=== PATIENT | male | born 1955 | race African-American/Black ===

== ENCOUNTER 2017-09-14 20:29 | Emergency (ER) | payer OTHER ==
[~2017-09-14] VITALS: Ht 175.3 cm; Wt 81.5 kg
[~2017-09-14 20:29] MED LIST: 1-ME1LIQ PO; BISA5TAB5 PO; CYCL1PAK PO; DICL75 PO; TRAM50 PO; ULTR50TA PO
[2017-09-14 20:31] VITALS: BP 176/96; PULSE 89; RESP 18; TEMP 101.9; O2SAT 96
[2017-09-14] MEDS ORDERED: SODIUM CHLOR 0.9% 1000 ML INJ 1,000 ML IV SCH (20:48)
[2017-09-14 20:55] VITALS: BP 161/88; PULSE 93; RESP 16; TEMP 101.9; O2SAT 99
[2017-09-14] MEDS ORDERED: ONDANSETRON HCL 4 MG/2 ML VIAL IVP ONE (21:00)
[2017-09-14] MEDS ORDERED: PANTOPRAZOLE SODIUM 40 MG VIAL IVP ONE (21:00)
[2017-09-14] MEDS ORDERED: SODIUM CHLORIDE 0.9% FLUSH 10 ML FLUSH IV FLUSH PRN (21:00)
--- NOTE | 2017-09-14 21:39 | PD ---
HPI Chief Complaint: GI Complaint Time Seen by Provider: 20:40 Travel History International Travel<30 days: No Contact w/Intl Traveler<30days: No Traveled to known affect area: No History of Present Illness HPI 62-year-old Afro-[place] male presents to emergency department with 2 week history of increasing weakness and shortness of breath with exertion. Patient has history of nausea and occasional vomitus as well as epigastric discomfort. Patient is noted darkening stools in the past several days consistent with possible GI bleed. Patient has history of GI bleed in the past. Patient is currently on omeprazole, and Carafate, metronidazole, and tetracycline as well as bismuth salicylate for recent H. pylori diagnosis after endoscopy on the . Patient is questioning whether he is anemic and needs blood work, and/or transfusion. Epigastric pain is worsening. He is nauseous currently. Patient denies fever, chills, chest pain or other symptoms. PFSH Past Medical History Glaucoma: Yes Hypertension: Yes Ulcer: Yes Tetanus Vaccination: < 5 Years Influenza Vaccination: No Past Surgical History Other Surgery: Yes (DUODENAL ULCERS REPAIRED, AND CYST REMOVED FROM POST. HEAD) Social History Alcohol Use: Yes ("2 TIMES A YEAR") Tobacco Use: Yes (CIGAR 1/WEEK) Substance Use: No Allergies-Medications (Allergen,Severity, Reaction): Coded Allergies: tomato (Unverified Allergy, Severe, 05/18/17) GREEN TOMATO Reported Meds & Prescriptions Reported Meds & Active Scripts Active Reported Amlodipine (Amlodipine Besylate) 10 Mg Tab 10 Mg PO DAILY Tetracycline (Tetracycline HCl) 250 Mg Cap 500 Mg PO QID Omeprazole 40 Mg Cap 40 Mg PO DAILY Metronidazole 500 Mg Tab 500 Mg PO TID Bismuth Subsalicylate 262 Mg Chew 524 Mg CHEW Q6HR PRN Do not exceed 8 doses in 24 hours. Review of Systems Except as stated in HPI: all other systems reviewed are Neg General / Constitutional: No: Fever, Chills Eyes: No: Visual changes HENT: No: Headaches Cardiovascular: Positive: Dyspnea on exertion, No: Chest Pain or Discomfort, Palpitations, Tachycardia, Diaphoresis, Syncope, Edema Respiratory: No: Shortness of Breath Gastrointestinal: Positive: Nausea, Vomiting, Abdominal Pain, Hematochezia, Dysphagia (history of reflux.), Loss of Appetite, No: Diarrhea, Hematemesis, Constipation (black stools noted), Changes in Bowel Habits, Indigestion Genitourinary: No: Dysuria Musculoskeletal: No: Pain Skin: No Rash Neurologic: Positive: Weakness (generalized) Psychiatric: No: Depression Endocrine: No: Polydipsia Hematologic/Lymphatic: No: Easy Bruising Physical Exam Narrative GENERAL: Patient appears in mild distress SKIN: Normal color. Normal turgor. HEAD: Atraumatic. Normocephalic. EYES: Pupils equal and round. No scleral icterus. Decreased conjunctival pallor or no drainage. ENT: No nasal bleeding or discharge. Mucous membranes pink and moist. Pharynx is clear. Airway is patent. NECK: Trachea midline. Supple nontender. CARDIOVASCULAR: Regular rate and rhythm. No murmurs gallops or rubs. RESPIRATORY: No accessory muscle use. Clear to auscultation. Breath sounds equal bilaterally. GASTROINTESTINAL: Abdomen soft, mild epigastric tenderness, nondistended. No point tenderness or rebound. No CVA tenderness. Hepatic and splenic margins not palpable. MUSCULOSKELETAL: Extremities without clubbing, cyanosis, or edema. No obvious deformities. NEUROLOGICAL: Awake and alert. No obvious cranial nerve deficits. Motor grossly within normal limits. Five out of 5 muscle strength in the arms and legs. Normal speech. PSYCHIATRIC: Appropriate mood and affect; insight and judgment normal. Data Data Last Documented VS Vital Signs Date Time Temp Pulse Resp B/P (MAP) Pulse Ox O2 Delivery O2 Flow Rate FiO2 09/14/17 22:58 100.0 95 17 137/71 (93) 98 Room Air Orders Orders Complete Blood Count With Diff (09/14/17 20:48) Comprehensive Metabolic Panel (09/14/17 20:48) Prothrombin Time / Inr (Pt) (09/14/17 20:48) Act Partial Throm Time (Ptt) (09/14/17 20:48) Iv Access Insert/Monitor (09/14/17 20:48) Ecg Monitoring (09/14/17 20:48) Oximetry (09/14/17 20:48) Ondansetron Inj (Zofran Inj) (09/14/17 21:00) Pantoprazole Inj (Protonix Inj) (09/14/17 21:00) Sodium Chlor 0.9% 1000 Ml Inj (Ns 1000 M (09/14/17 20:48) Sodium Chloride 0.9% Flush (Ns Flush) (09/14/17 21:00) Electrocardiogram (09/14/17 20:48) Type And Screen (09/14/17 20:48) Urinalysis - C+S If Indicated (09/14/17 22:57) Acetaminophen (Tylenol) (09/14/17 23:00) Labs Laboratory Tests Test 09/14/17 21:05 White Blood Count 5.6 TH/MM3 Red Blood Count 4.51 MIL/MM3 Hemoglobin 13.2 GM/DL Hematocrit 39.0 % Mean Corpuscular Volume 86.4 FL Mean Corpuscular Hemoglobin 29.2 PG Mean Corpuscular Hemoglobin Concent 33.8 % Red Cell Distribution Width 14.6 % Platelet Count 197 TH/MM3 Mean Platelet Volume 7.3 FL Neutrophils (%) (Auto) 74.6 % Lymphocytes (%) (Auto) 10.4 % Monocytes (%) (Auto) 14.1 % Eosinophils (%) (Auto) 0.3 % Basophils (%) (Auto) 0.6 % Neutrophils # (Auto) 4.2 TH/MM3 Lymphocytes # (Auto) 0.6 TH/MM3 Monocytes # (Auto) 0.8 TH/MM3 Eosinophils # (Auto) 0.0 TH/MM3 Basophils # (Auto) 0.0 TH/MM3 CBC Comment DIFF FINAL Differential Comment Prothrombin Time 11.4 SEC Prothromb Time International Ratio 1.1 RATIO Activated Partial Thromboplast Time 32.2 SEC Blood Urea Nitrogen 5 MG/DL Creatinine 1.03 MG/DL Random Glucose 100 MG/DL Total Protein 6.7 GM/DL Albumin 3.5 GM/DL Calcium Level 8.3 MG/DL Alkaline Phosphatase 67 U/L Aspartate Amino Transf (AST/SGOT) 33 U/L Alanine Aminotransferase (ALT/SGPT) 26 U/L Total Bilirubin 0.6 MG/DL Sodium Level 136 MEQ/L Potassium Level 3.8 MEQ/L Chloride Level 101 MEQ/L Carbon Dioxide Level 29.3 MEQ/L Anion Gap 6 MEQ/L Estimat Glomerular Filtration Rate 88 ML/MIN MDM Medical Decision Making Medical Screen Exam Complete: Yes Emergency Medical Condition: Yes Differential Diagnosis GI bleed. Melena. Anemia. Dyspnea with exertion. Narrative Course Patient appears medically stable at time of exam. Rectal exam shows positive stool guaiac testing. Labs ordered including CBC, CMP, PT PTT and INR, type and screen is ordered. IV access is obtained patient is given 4 mg ondansetron IV as well as pantoprazole 40 mg IV as well as 1000 mL was normal saline bolus. EKG is ordered. CBC is unremarkable. Type and screen was canceled. Coagulation studies are unremarkable. Chemistries are unremarkable. Patient states he is somewhat better after the above treatment plan, however he continues to have mild nausea and epigastric tenderness. Patient discussed with Dr. Ohara who feels that he qualifies as a failure to outpatient therapy with ongoing epigastric pain, nausea, vomiting with diagnosis of H. pylori. Call was placed to the hospitalist to discuss the patient for observation with GI consult. Discussed the patient with Dr. Blankenship who did not feel strongly that this patient warranted observation admission. Urinalysis is pending at this time as the patient is noted to have a low-grade fever. Patient given acetaminophen 650 by mouth. 2300 hrs. patient care is referred to Dr. Ohara for final disposition. Diagnosis Primary Impression: GI bleed Qualified Codes: K92.2 - Gastrointestinal hemorrhage, unspecified Additional Impressions: Nausea and vomiting in adult Failure of outpatient treatment H. pylori infection Admitting Information Admitting Physician Requests: Observation Condition: Stable Stevo Juárez Sep 14, 2017 21:39
[2017-09-14] MEDS ORDERED: AMLO10TA2 PO (21:49)
[2017-09-14] MEDS ORDERED: METR1TAB76 PO (21:49)
[2017-09-14] MEDS ORDERED: BISM1CHW5 CHEW (21:49)
[2017-09-14] MEDS ORDERED: OMEP40CA2 PO (21:49)
[2017-09-14] MEDS ORDERED: TETR250C88 PO (21:49)
[2017-09-14 21:58] LABS: AUTOMATED NEUTROPHIL # 4.2 TH/MM3 (1.8-7.7); BASOPHIL % 0.6 % (0.0-2.0); EOSINOPHIL % 0.3 % (0.0-4.0); HEMOGLOBIN 13.2 GM/DL (13.0-17.0); LYMPH % 10.4 % (9.0-44.0); LYMPHOCYTE # 0.6 TH/MM3 (1.0-4.8); MEAN CELL VOLUME 86.4 FL (80.0-100.0); MEAN CORPUSCULAR HEMOGLOBIN 29.2 PG (27.0-34.0); MEAN CORPUSCULAR HGB CONC 33.8 % (32.0-36.0); MEAN PLATELET VOLUME 7.3 FL (7.0-11.0); MONO % 14.1 % (0.0-8.0); MONOCYTE # 0.8 TH/MM3 (0-0.9); NEUT % 74.6 % (16.0-70.0); PLATELET COUNT 197 TH/MM3 (150-450); RED BLOOD COUNT 4.51 MIL/MM3 (4.50-5.90); RED CELL DISTRIBUTION WIDTH 14.6 % (11.6-17.2); WHITE BLOOD COUNT 5.6 TH/MM3 (4.0-11.0)
[2017-09-14 22:12] LABS: ALBUMIN 3.5 GM/DL (3.4-5.0); ALKALINE PHOSPHATASE 67 U/L (45-117); ALT (GPT) 26 U/L (12-78); AST (GOT) 33 U/L (15-37); BICARBONATE 29.3 MEQ/L (21.0-32.0); BLOOD UREA NITROGEN 5 MG/DL (7-18); CALCIUM 8.3 MG/DL (8.5-10.1); CHLORIDE 101 MEQ/L (98-107); CREATININE 1.03 MG/DL (0.60-1.30); GLOMERULAR FILTRATION RATE 88 ML/MIN (>89); GLUCOSE,RANDOM 100 MG/DL (74-106); SODIUM (NA) 136 MEQ/L (136-145); TOTAL BILIRUBIN ADULT 0.6 MG/DL (0.2-1.0); TOTAL PROTEIN 6.7 GM/DL (6.4-8.2)
[2017-09-14 22:28] LABS: INTERNATIONAL NORMALIZED RATIO 1.1 RATIO; PROTHROMBIN TIME - PATIENT 11.4 SEC (9.8-11.6)
[2017-09-14 22:58] VITALS: BP 137/71; PULSE 95; RESP 17; TEMP 100; O2SAT 98
[2017-09-14] MEDS ORDERED: ACETAMINOPHEN 325 MG TAB PO ONE (23:00)
--- NOTE | 2017-09-14 23:20 | PD ---
Physical Exam Narrative General: The patient is a well-developed well-nourished male in no acute distress. Head and Neck exam: Head is normocephalic atraumatic. Nose: Midline septum with pink mucous membranes Mouth: Dentition unremarkable. Moist mucus membranes. Posterior oropharynx is not erythematous. No tonsillar hypertrophy. Uvula midline. Airway patent. Neck: No palpable lymphadenopathy. No nuchal rigidity. Cardiovascular: Regular rate and rhythm without murmurs, gallops, or rubs. Lungs: Clear to auscultation bilaterally. No wheezes, rhonchi, or rales. Abdomen: Soft, without tenderness to palpation in all 4 quadrants of the abdomen. No guarding, rebound, or rigidity. Normal bowel sounds are audible. No tenderness on palpation of McBurney's point. Negative Zhao sign. Extremities: No clubbing, cyanosis, or edema. Neurologic Exam: Grossly nonfocal. Skin Exam: No rash noted. Intact skin that is warm and dry. Data Data Last Documented VS Vital Signs Date Time Temp Pulse Resp B/P (MAP) Pulse Ox O2 Delivery O2 Flow Rate FiO2 09/15/17 00:09 98.9 09/14/17 22:58 95 17 98 Room Air Orders Orders Complete Blood Count With Diff (09/14/17 20:48) Comprehensive Metabolic Panel (09/14/17 20:48) Prothrombin Time / Inr (Pt) (09/14/17 20:48) Act Partial Throm Time (Ptt) (09/14/17 20:48) Iv Access Insert/Monitor (09/14/17 20:48) Ecg Monitoring (09/14/17 20:48) Oximetry (09/14/17 20:48) Ondansetron Inj (Zofran Inj) (09/14/17 21:00) Pantoprazole Inj (Protonix Inj) (09/14/17 21:00) Sodium Chlor 0.9% 1000 Ml Inj (Ns 1000 M (09/14/17 20:48) Sodium Chloride 0.9% Flush (Ns Flush) (09/14/17 21:00) Electrocardiogram (09/14/17 20:48) Type And Screen (09/14/17 20:48) Urinalysis - C+S If Indicated (09/14/17 22:57) Acetaminophen (Tylenol) (09/14/17 23:00) Chest, Single Ap (09/14/17 23:20) Ct Abd/Pel W Iv Contrast(Rout) (09/15/17 00:01) Iohexol 350 Inj (Omnipaque 350 Inj) (09/15/17 01:17) Ed Discharge Order (09/15/17 01:48) Labs Laboratory Tests Test 09/14/17 21:05 09/15/17 00:00 White Blood Count 5.6 TH/MM3 Red Blood Count 4.51 MIL/MM3 Hemoglobin 13.2 GM/DL Hematocrit 39.0 % Mean Corpuscular Volume 86.4 FL Mean Corpuscular Hemoglobin 29.2 PG Mean Corpuscular Hemoglobin Concent 33.8 % Red Cell Distribution Width 14.6 % Platelet Count 197 TH/MM3 Mean Platelet Volume 7.3 FL Neutrophils (%) (Auto) 74.6 % Lymphocytes (%) (Auto) 10.4 % Monocytes (%) (Auto) 14.1 % Eosinophils (%) (Auto) 0.3 % Basophils (%) (Auto) 0.6 % Neutrophils # (Auto) 4.2 TH/MM3 Lymphocytes # (Auto) 0.6 TH/MM3 Monocytes # (Auto) 0.8 TH/MM3 Eosinophils # (Auto) 0.0 TH/MM3 Basophils # (Auto) 0.0 TH/MM3 CBC Comment DIFF FINAL Differential Comment Prothrombin Time 11.4 SEC Prothromb Time International Ratio 1.1 RATIO Activated Partial Thromboplast Time 32.2 SEC Blood Urea Nitrogen 5 MG/DL Creatinine 1.03 MG/DL Random Glucose 100 MG/DL Total Protein 6.7 GM/DL Albumin 3.5 GM/DL Calcium Level 8.3 MG/DL Alkaline Phosphatase 67 U/L Aspartate Amino Transf (AST/SGOT) 33 U/L Alanine Aminotransferase (ALT/SGPT) 26 U/L Total Bilirubin 0.6 MG/DL Sodium Level 136 MEQ/L Potassium Level 3.8 MEQ/L Chloride Level 101 MEQ/L Carbon Dioxide Level 29.3 MEQ/L Anion Gap 6 MEQ/L Estimat Glomerular Filtration Rate 88 ML/MIN Urine Color LIGHT-YELLOW Urine Turbidity CLEAR Urine pH 5.5 Urine Specific [place] 1.005 Urine Protein NEG mg/dL Urine Glucose (UA) NEG mg/dL Urine Ketones 10 mg/dL Urine Occult Blood TRACE Urine Nitrite NEG Urine Bilirubin NEG Urine Urobilinogen LESS THAN 2.0 MG/DL Urine Leukocyte Esterase NEG Urine RBC 1 /hpf Urine WBC 1 /hpf Urine Squamous Epithelial Cells <1 /hpf Urine Mucus FEW /lpf Microscopic Urinalysis Comment CULT NOT INDICATED MDM Medical Record Reviewed: Yes Supervised Visit with KELLY: Yes Interpretation(s) Last Impressions Abdomen/Pelvis CT 09/15/17 0001 Signed Impressions: Service Date/Time: Friday, September 15, 2017 01:04 - CONCLUSION: 1. No acute findings in the abdomen/pelvis. 2. Hepatic and right renal cysts. 3. Nonspecific left inguinal lymph node. Jeremiah Dallas MD Chest X-Ray 09/14/17 2320 Signed Impressions: Service Date/Time: Thursday, September 14, 2017 23:40 - CONCLUSION: Patchy non-consolidative infiltrates in the left infrahilar region. Jeremiah Dallas MD Narrative Course I, Dr. Ohara, have reviewed the advance practice practitioner's documentation and am in agreement, met with the patient face to face, made the diagnosis, and the medical decision making was done by me. The patient was initially evaluated by Stevo, the physician orthodontic assistant. Please see their complete history and physical. *My assessment and Findings: The patient presents with a history of recently being being diagnosed with gastritis related to H. pylori on August 18 after endoscopy. The patient since then has been on Carafate, Flagyl, tetracycline, bismuth salicylate. The patient has continued to have midepigastric abdominal pain, occasional vomiting, dyspnea on exertion and a sensation of generalized weakness. He noticed that his stools were also dark, therefore he decided to come to the emergency department for evaluation. He is followed by the [facility] for his primary care. During the course of the patients emergency department visit, the patients history, examination, and differential diagnosis were reviewed with the patient. The patient was placed on a delivery technician with oximetry and frequent blood pressure monitoring. The patient had IV access obtained and blood work sent for analysis. The patient was initially provided normal saline IV fluids, Tylenol for pain, Zofran for nausea, Protonix 40 mg IV. The patients laboratory studies were reviewed and remarkable for a white count of 5.6, hemoglobin 13.2, platelets 197 with 74.6 neutrophils, monocytes 14.1. CMP is remarkable for BUN of 5, GFR of 88, calcium 8.3, PT 11.4, PTT 32.2, urinalysis shows 10 ketones otherwise unremarkable. Radiology studies were reviewed and remarkable for a chest x-ray that shows patchy non-consolidative small infiltrates in the left perihilar region. A CT scan of the abdomen and pelvis shows no acute findings in the abdomen and pelvis , hepatic and right renal cyst, nonspecific left inguinal lymph node. The patient was reexamined by me. The patient reported feeling improved. The patient was resting comfortably. I suspect that the patient start stool was related to the bismuth. I recommended that he closely follow-up with his GI doctor by phone tomorrow. The patient is instructed to continue on his current medications. The patient is resting comfortably and feels better, is alert and in no distress. The patients results and examination findings were discussed with the patient. The repeat examination is unremarkable and benign. The history, exam, diagnostic testing, and current condition do not suggest any significant pathology to warrant further testing, continued ED treatment, admission, or surgical evaluation at this point. The vital signs have been stable. The patient does not have uncontrollable pain, intractable vomiting, or other significant symptoms. The patient's condition is stable and appropriate for discharge. The patient will pursue further outpatient evaluation with a primary care physician or other designated or consulting physician as indicated in the discharge instructions. The patient expressed understanding and was agreeable with this plan. Diagnosis Primary Impression: H. pylori infection Additional Impressions: Nausea and vomiting in adult Abdominal pain Qualified Codes: R10.13 - Epigastric pain Referrals: [employer] 1 day Med/Other Pt SpecificInfo: No Change to Meds Disposition: 01 DISCHARGE HOME Condition: Stable Jennifer Ohara MD Sep 14, 2017 23:20
--- NOTE | 2017-09-14 23:48 | RADRPT ---
EXAM DATE/TIME: 09/14/2017 23:40 [facility] COMPARISON: CHEST SINGLE AP, March 28, 2014, 10:40. INDICATIONS : Low Chest pain, shortness of breath. MEDICAL HISTORY : None. SURGICAL HISTORY : None. ENCOUNTER: Initial ACUITY: 1 day PAIN SCORE: 0/10 LOCATION: Bilateral chest FINDINGS: Single view of the chest demonstrates patchy infiltrates in the left infrahilar region. The right michelle ng is clear. The heart is normal size. Both hemidiaphragms are well delineated. CONCLUSION: Patchy non-consolidative infiltrates in the left infrahilar region. Jeremiah Dallas MD on September 14, 2017 at 23:46 Board Certified Radiologist. This report was verified electronically.
[2017-09-15 00:09] VITALS: TEMP 98.9
[2017-09-15 00:45] LABS: BILIRUBIN, URINE NEG (NEG); BLOOD, URINE TRACE (NEG); GLUCOSE,URINE NEG (NEG); KETONE, URINE 10 mg/dL (NEG); MUCUS URINE FEW /lpf (OCC); NITRITE,URINE NEG (NEG); PH, URINE 5.5 (5.0-8.5); SQUAMOUS EPITHELIAL CELL URINE <1 /hpf (0-5); URINE COLOR LIGHT-YELLOW (YELLW/STRAW); URINE LEUKOCYTE ESTERASE NEG (NEG)
[2017-09-15] MEDS ORDERED: IOHEXOL 350 MG/ML 10 ML VIAL (for RAD DIAG) IVCONTRAST ONE (01:17)
--- NOTE | 2017-09-15 01:26 | RADRPT ---
EXAM DATE/TIME: 09/15/2017 01:04 [facility] COMPARISON: No previous studies available for comparison. INDICATIONS : Abdomen pain. IV CONTRAST: 76 cc Omnipaque 350 (iohexol) IV ORAL CONTRAST: No oral contrast ingested. RADIATION DOSE: 7.39 CTDIvol (mGy) MEDICAL HISTORY : Hypertension. Ulcer SURGICAL HISTORY : None. ENCOUNTER: Initial ACUITY: 1 day PAIN SCALE: 4/10 LOCATION: Bilateral abdomen TECHNIQUE: Volumetric scanning of the abdomen and pelvis was performed. Using automated exposure control and ad justment of the mA and/or kV according to patient size, radiation dose was kept as low as reasonably achievable to obtain optimal diagnostic quality images. DICOM format image data is available electro nically for review and comparison. FINDINGS: LOWER LUNGS: The visualized lower lungs are clear. LIVER: There are multiple smooth margin low density lesions throughout the liver measuring up to 2.[address] density 14 Hounsfield units, characteristic of cysts. No solid lesions seen. No calcified gal lstones. No biliary ductal dilatation. SPLEEN: Normal size without lesion. PANCREAS: Within normal limits. KIDNEYS: Multiple cysts in the right kidney measuring up to 2.5 cm. No evidence of hydronephrosis or solid le misael on either side. ADRENAL GLANDS: Within normal limits. VASCULAR: There is no aortic aneurysm. BOWEL/MESENTERY: No dilated loops of small or large bowel. No evidence of free fluid. ABDOMINAL WALL: Within normal limits. RETROPERITONEUM: There is no lymphadenopathy. BLADDER: No wall thickening or mass. REPRODUCTIVE: Within normal limits. INGUINAL: Left inguinal lymph node measures 1.4 cm and still has a discernible fatty hilum. MUSCULOSKELETAL: Moderate degenerative changes in the posterior elements L5-S1. CONCLUSION: 1. No acute findings in the abdomen/pelvis. 2. Hepatic and right renal cysts. 3. Nonspecific left inguinal lymph node. Jeremiah Dallas MD on September 15, 2017 at 1:19 Board Certified Radiologist. This report was verified electronically.
--- NOTE | 2017-09-15 15:29 | EKG ---
Date Performed: 09/14/2017 Time Performed: 21:34:29 PTAGE: 62 years EKG: Sinus rhythm NORMAL ECG PREVIOUS TRACING : 03/28/2014 10.11 DOCTOR: Al Hamlin Interpretating Date/Time 09/15/2017 15:28:10
== END 2017-09-15 03:00 | disposition home or self-care (01) ==
LOC: NEPC 20:29
DX: K29.70 Gastritis, unspecified, without bleeding (principal); B96.81 Helicobacter pylori [H. pylori] as the cause of diseases classified elsewhere; R91.8 Other nonspecific abnormal finding of lung field; R06.02 Shortness of breath; R53.1 Weakness; H40.9 Unspecified glaucoma; I10 Essential (primary) hypertension; F17.290 Nicotine dependence, other tobacco product, uncomplicated; Z91.018 Allergy to other foods
CPT/HCPCS: 71010; 74177; 80053; 81001; 85025; 85610; 85730; 86850; 86900; 86901; 93005; 96361; 96374; 96375; 99285; C9113; J2405; J7030; Q9967